=== PATIENT | male | born 1970 | race Caucasian/White ===

== ENCOUNTER 2016-11-19 13:15 | Emergency (ER) | payer OTHER ==
--- NOTE | 2016-11-19 13:54 | ED NURSING NOTES ---
Clinical Report - Nurses [facility] [address] [place] [address] 11/19/2016 13:16 Patient: DANA RAUSCH TRIAGE Triage time 13:19. Acuity: LEVEL 3. Chief Complaint: WASP STING. Alert. No acute distress. HADLEY COMA SCORE: Hadley Coma Scale: 15- eyes open spontaneously (4); best verbal response- oriented x 4 (5); best motor response- obeys commands (6). --13:28 Hannah Selby R.N. 13:19 11/19/16. BP: 119/57. HR: 101. RR: 20. O2 saturation: 94% on room air. Temp: 98.2 F (oral). Pain level now 9/10. --13:28 Hannah Selby R.N. Weight: 108.8 kg stated. Height/Length: 70 inches Per Patient. BMI: 34.4. --13:20 Hannah Selby R.N. Medications Doxepin HCl Oral. Fluoxetine HCl Oral. --13:26 Hannah Selby R.N. MetFORMIN HCl Oral. Percocet Oral. Seroquel Oral. Statins Support Oral. --13:26 Hannah Selby R.N. Methocarbamol Oral. --13:26 Hannah Selby R.N. Gabapentin Oral. --13:26 Hannah Selby R.N. Lantus Subcutaneous. --13:27 Hannah Selby R.N. Allergies Bee stings. Ibuprofen. --13:25 Hannah Selby R.N. PCN. Vicodin. Wool. --13:25 Hannah Selby R.N. Tape. --13:27 Hannah Selby R.N. History Arrived by private vehicle. Historian: patient. Accompanied by family. Primary physician (charles). ( wasp sting 20 min CHILDCARE DIRECTOR to right hand). Location of injuries: right hand. This occurred just prior to arrival. He has had itching. Has had no redness or swelling. No skin rash or trouble swallowing. Treatment CHILDCARE DIRECTOR: (epi pen). SOCIAL HX: Heavy tobacco smoker (cigarette)- less than 1 pack per day. No alcohol use or drug use. FALL RISK ASSESSMENT: Fall risk assessment completed. No fall risk identified. NUTRITIONAL RISK ASSESSMENT: The nutritional risk assessment revealed no deficiencies. FUNCTIONAL ASSESSMENT: Functional assessment: no impairments noted. LEARNING NEEDS ASSESSMENT: The learning needs assessment revealed no barriers. SKIN INTEGRITY ASSESSMENT: Skin integrity risk assessment completed. No skin integrity risk identified. --13:28 Hannah Selby R.N. PROBLEMS: Insect Bite(s). Bee sting . Intervertebral Disc Disease. Arthritis. Spinal Fracture. Neck Pain. Diabetes Mellitus. Abdominal Pain. Immunizations. Heart Murmur. Back Pain. Elevated Cholesterol. --13:28 Hannah Selby R.N. ADDITIONAL SURGERIES: Cholecystectomy. Right hip replacement. Vasectomy. --13:28 Hananh Selby R.N. Interventions ID band on patient. To treatment room. --13:28 Hannah Selby R.N. PHYSICAL ASSESSMENT Ambulatory to room. GENERAL / NEURO / PSYCH: Alert. Oriented X 4. Appears anxious. RESPIRATORY: Respirations not labored. CVS: Pulses within normal limits. Capillary refill less than 2 seconds. GI / : Abdomen soft. EXTREMITIES: Neuro-vascular status intact to the extremity. SKIN: Skin is warm and dry. No skin rash. ( pt itching in triage). --13:29 Hannah Selby R.N. NURSING PROGRESS NOTES 13:29 11/19/16. The plan of care for this patient has been created. Call light placed in reach. Bed placed in lowest position. Brakes of bed on. Patient ready for evaluation- chart flagged. --13:29 Hannah Selby R.N. 13:33 11/19/2016 Solu-Medrol (MethylPREDNISolone Sodium Succ) IM 125 mg given. Allergies verified and confirmed 5 rights. --13:33 Imer Galindo R.N. 13:34 11/19/2016 Benadryl (DiphenhydrAMINE HCl) IM 50 mg given. Allergies verified, confirmed 5 rights and sedative warning given to the patient. --13:34 Imer Galindo R.N. 13:34 11/19/2016 Famotidine PO 40 mg given. Allergies verified and confirmed 5 rights. --13:34 Imer Galindo R.N. 13:34 11/19/16. Pulse oximeter placed on patient. --13:34 Imer Galindo R.N. 13:34 11/19/16. --13:34 Imer Galindo R.N. 13:34 11/19/16. O2 saturation: 94% on room air. --13:34 Imer Galindo R.N. The patient reports no complaints and he is calm and resting quietly. Overall patient status is improved- he states feels better. SKIN: The patient reports itching to be gone now. --13:51 Hannah Selby R.N. 13:52 11/19/16. O2 saturation: 95% on room air. --13:52 Hannah Selby R.N. DISPOSITION / DISCHARGE 14:14 11/19/16. Condition at departure: improved. The goals identified in the patient's plan of care were met. No learning barriers present. Discharge instructions provided and reviewed with the patient and parent. Reviewed warnings. Reviewed medication(s). Treatments reviewed. Patient and parent verbalized understanding. Written instructions provided in Israeli. The patient was discharged by the physician. He was discharged home and accompanied by family. He left the Emergency Department ambulatory and via private vehicle. Family member driving. FALL RISK ASSESSMENT: Fall risk assessment completed. No fall risk identified. --14:14 Imer Galindo R.N. 14:12 11/19/16. BP: 121/76. HR: 99. RR: 18. O2 saturation: 96% on room air. Temp: 98.2 F (oral). Pain level now: 06/20. --14:14 Imer Galindo R.N. 14:14 11/19/16. Departure time: 14:14 Nov 19 2016. --14:14 Imer Galindo R.N. Locked/Released at 11/19/2016 14:19 by Imer Galindo R.N.
--- NOTE | 2016-11-19 13:54 | ED NURSING NOTES ---
Clinical Report - Nurses [facility] [address] [place] [place] [address] 11/19/2016 13:16 Patient: DANA RAUSCH TRIAGE Triage time 13:19. Acuity: LEVEL 3. Chief Complaint: WASP STING. Alert. No acute distress. HADLEY COMA SCORE: Hadley Coma Scale: 15- eyes open spontaneously (4); best verbal response- oriented x 4 (5); best motor response- obeys commands (6). --13:28 Hannah Selby R.N. 13:19 11/19/16. BP: 119/57. HR: 101. RR: 20. O2 saturation: 94% on room air. Temp: 98.2 F (oral). Pain level now 9/10. --13:28 Hannah Selby R.N. Weight: 108.8 kg stated. Height/Length: 70 inches Per Patient. BMI: 34.4. --13:20 Hannah Selby R.N. Medications Doxepin HCl Oral. Fluoxetine HCl Oral. --13:26 Hannah Selby R.N. MetFORMIN HCl Oral. Percocet Oral. Seroquel Oral. Statins Support Oral. --13:26 Hannah Selby R.N. Methocarbamol Oral. --13:26 Hannah Selby R.N. Gabapentin Oral. --13:26 Hannah Selby R.N. Lantus Subcutaneous. --13:27 Hannah Selby R.N. Allergies Bee stings. Ibuprofen. --13:25 Hannah Selby R.N. PCN. Vicodin. Wool. --13:25 Hannah Selby R.N. Tape. --13:27 Hannah Selby R.N. History Arrived by private vehicle. Historian: patient. Accompanied by family. Primary physician (charles). ( wasp sting 20 min STONE LAYER to right hand). Location of injuries: right hand. This occurred just prior to arrival. He has had itching. Has had no redness or swelling. No skin rash or trouble swallowing. Treatment STONE LAYER: (epi pen). SOCIAL HX: Heavy tobacco smoker (cigarette)- less than 1 pack per day. No alcohol use or drug use. FALL RISK ASSESSMENT: Fall risk assessment completed. No fall risk identified. NUTRITIONAL RISK ASSESSMENT: The nutritional risk assessment revealed no deficiencies. FUNCTIONAL ASSESSMENT: Functional assessment: no impairments noted. LEARNING NEEDS ASSESSMENT: The learning needs assessment revealed no barriers. SKIN INTEGRITY ASSESSMENT: Skin integrity risk assessment completed. No skin integrity risk identified. --13:28 Hannah Selby R.N. PROBLEMS: Insect Bite(s). Bee sting . Intervertebral Disc Disease. Arthritis. Spinal Fracture. Neck Pain. Diabetes Mellitus. Abdominal Pain. Immunizations. Heart Murmur. Back Pain. Elevated Cholesterol. --13:28 Hannah Selby R.N. ADDITIONAL SURGERIES: Cholecystectomy. Right hip replacement. Vasectomy. --13:28 Hannah Selby R.N. Interventions ID band on patient. To treatment room. --13:28 Hannah Selby R.N. PHYSICAL ASSESSMENT Ambulatory to room. GENERAL / NEURO / PSYCH: Alert. Oriented X 4. Appears anxious. RESPIRATORY: Respirations not labored. CVS: Pulses within normal limits. Capillary refill less than 2 seconds. GI / : Abdomen soft. EXTREMITIES: Neuro-vascular status intact to the extremity. SKIN: Skin is warm and dry. No skin rash. ( pt itching in triage). --13:29 Hannah Selby R.N. NURSING PROGRESS NOTES 13:29 11/19/16. The plan of care for this patient has been created. Call light placed in reach. Bed placed in lowest position. Brakes of bed on. Patient ready for evaluation- chart flagged. --13:29 Hannah Selby R.N. 13:33 11/19/2016 Solu-Medrol (MethylPREDNISolone Sodium Succ) IM 125 mg given. Allergies verified and confirmed 5 rights. --13:33 Imer Galindo R.N. 13:34 11/19/2016 Benadryl (DiphenhydrAMINE HCl) IM 50 mg given. Allergies verified, confirmed 5 rights and sedative warning given to the patient. --13:34 Imer Galindo R.N. 13:34 11/19/2016 Famotidine PO 40 mg given. Allergies verified and confirmed 5 rights. --13:34 Imer Galindo R.N. 13:34 11/19/16. Pulse oximeter placed on patient. --13:34 Imer Galindo R.N. 13:34 11/19/16. --13:34 Imer Galindo R.N. 13:34 11/19/16. O2 saturation: 94% on room air. --13:34 Imer Galindo R.N. The patient reports no complaints and he is calm and resting quietly. Overall patient status is improved- he states feels better. SKIN: The patient reports itching to be gone now. --13:51 Hannah Selby R.N. 13:52 11/19/16. O2 saturation: 95% on room air. --13:52 Hannah Selby R.N. DISPOSITION / DISCHARGE 14:14 11/19/16. Condition at departure: improved. The goals identified in the patient's plan of care were met. No learning barriers present. Discharge instructions provided and reviewed with the patient and parent. Reviewed warnings. Reviewed medication(s). Treatments reviewed. Patient and parent verbalized understanding. Written instructions provided in Latvian. The patient was discharged by the physician. He was discharged home and accompanied by family. He left the Emergency Department ambulatory and via private vehicle. Family member driving. FALL RISK ASSESSMENT: Fall risk assessment completed. No fall risk identified. --14:14 Imer Galindo R.N. 14:12 11/19/16. BP: 121/76. HR: 99. RR: 18. O2 saturation: 96% on room air. Temp: 98.2 F (oral). Pain level now: 06/20. --14:14 Imer Galindo R.N. 14:14 11/19/16. Departure time: 14:14 Nov 19 2016. --14:14 Imer Galindo R.N. Locked/Released at 11/19/2016 14:19 by Imer Galindo R.N.
--- NOTE | 2016-11-19 13:54 | ED ORDER SUMMARY ---
..... Patient: DANA RAUSCH OrderSheet [facility] VisitID: [id number] [address] [place] [address] 46y, M Registration Date/Time: 11/19/2016 ORDER SHEET Weight: 108.8 kg (stated) Allergies: Bee stings, Ibuprofen, PCN, Vicodin, Wool, Tape GENERAL ORDERS: MEDICATION ORDERS: Solu-MEDROL IM 125 mg (NOW) (13:25 11/19/2016 fadumo ALEMAN) (Ack 13:26 JBoardley R.N.) (13:33 JBoardley R.N.) Benadryl IM 50 mg (NOW) (13:25 [facility]/2016 [facility] (Ack 13:26 JBoardley R.N.) (13:34 JBoardley R.N.) Famotidine PO 40 mg (NOW) (13:26 [facility]/19/2016 [facility] (Ack 13:26 JBoardley R.N.) (13:34 JBoardley R.N.) IV FLUIDS: ORDER SHEET NOTES: [Electronically signed by Imer Galindo R.N. (14:19 11/19/2016)] [Electronically signed by Yasmani Chandra DO (14:27 11/19/2016)] [Electronically locked/signed by Imer Galindo R.N. (14:19 11/19/2016)]
--- NOTE | 2016-11-19 13:54 | ED CLINICAL REPORT ---
Clinical Report - Physicians/Mid Levels [facility] [address] [place] [address] 11/19/2016 13:16 Patient: DANA RAUSCH Time Seen: 13:20. Arrived- By private vehicle. Historian- patient. HISTORY OF PRESENT ILLNESS Location of injuries- right 2nd finger. Chief Complaint: BEE STING. The injury occurred just prior to arrival. Occurred on a street. The patient has had itching. He has had a itchy skin rash consisting of "redness" located on the back, chest and abdomen. He has not had swelling, drainage or trouble swallowing. No difficulty breathing. 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 REVIEW OF SYSTEMS No swelling, numbness, headache, difficulty breathing or weakness. No tingling, chest pain, nausea, fever or joint pain. No abdominal pain, vomiting or chills. PAST HISTORY Type II diabetes mellitus treated with oral med and insulin. Prior allergic reaction, secondary to insect bite. Carries EpiPen. PCP: Dr Harden. Heart murmur. Asthma. Chronic obstructive pulmonary disease. Hyperlipidemia. Back pain. Anxiety problems. Depression. Surgeries: Cholecystectomy. Right hip surgery. Vasectomy. SOCIAL HISTORY Smoker- current status unknown. Occasional alcohol use. ADDITIONAL NOTES The nursing notes have been reviewed. PHYSICAL EXAM Vital Signs: 11/19/2016 13:19 BP: 119/57. HR: 101. RR: 20. O2 saturation: 94%. Temp: 98.2 F. Appearance: Alert. Oriented X3. Anxious. Patient in mild distress. Head: Head normal on inspection and non-tender. Eyes: Eyes normal inspection. ENT: Ears normal on inspection. Nose normal on inspection. Mouth normal on inspection. Uvula not deviated. Airway not obstructed. No pharyngeal erythema or swelling. Neck: Normal inspection. Neck non-tender. CVS: Tachycardia. Heart sounds normal. Respiratory: Chest normal on inspection. Chest nontender. Abdomen: Soft and nontender. No rebound tenderness or guarding. Back: No tenderness. Skin: Skin warm and dry. Mild, erythematous skin rash located on the right arm, left arm, chest and abdomen. Extremities: Right index finger: mild erythema and tenderness of the distal phalanx; (no stinger seen). No swelling, puncture wound, foreign body or deformity. Pelvis stable. Extremities atraumatic. Neuro: Ellerbe Coma Scale: 15- eyes open spontaneously (4); best verbal response- oriented x 3 (5); best motor response- obeys commands (6). Oriented X 3. No motor deficit. No sensory deficit. PROGRESS AND PROCEDURES Course of Care: Benadryl 50mg IM given. Solu-Medrol 125mg IM given. Famotidine 40 mg PO given. 13:54 11/19/16. Physical exam findings are improved. Symptoms much better. 11/19/2016 14:12 BP: 121/76. HR: 99. RR: 18. O2 saturation: 96%. Temp: 98.2 F. Pain level now: 06/20. Patient/family counseled. Old ED records reviewed. Disposition: Discharged. Condition: stable and improved. CLINICAL IMPRESSION Single bee sting to the right index finger. Generalized allergic reaction. INSTRUCTIONS Do not work today. Warnings: GENERAL WARNINGS: Return or contact your physician immediately if your condition worsens or changes unexpectedly, if not improving as expected, or if other problems arise. Specifically return if breathing difficulty. Your Current Medications: CONTINUE TAKING THE FOLLOWING MEDICATIONS: Doxepin HCl Oral. Fluoxetine HCl Oral. Gabapentin Oral. Lantus Subcutaneous. MetFORMIN HCl Oral. Methocarbamol Oral. Percocet Oral. Seroquel Oral. Statins Support Oral. Prescription Medications: Zantac 150 mg: take 1 orally every 12 hours for 3 days. Dispense fifteen (15). No refills. Substitution is permissible. Prednisone 20 mg: take 3 orally every day for 3 days. Dispense sufficient quantity. No refills. EpiPen Auto-Injector 0.3mg / unit: inject 1 unit dose as directed. Dispense one (1) one-esdras. No refills. Substitution is permissible. OTC Medications: Benadryl Allergy 25 mg (available over the counter): take 1-2 orally every 8 hours as needed for itching or allergies. Dispense thirty (30). No refill. Substitution is permissible. Follow-up: Follow up with your doctor Dereck in about two days. (Electronically signed by Yasmani Chandra DO 11/19/2016 14:27)
--- NOTE | 2016-11-19 13:54 | ED CLINICAL REPORT ---
Clinical Report - Physicians/Mid Levels [facility] [address] [place] [address] 11/19/2016 13:16 Patient: DANA RAUSCH Time Seen: 13:20. Arrived- By private vehicle. Historian- patient. HISTORY OF PRESENT ILLNESS Location of injuries- right 2nd finger. Chief Complaint: BEE STING. The injury occurred just prior to arrival. Occurred on a street. The patient has had itching. He has had a itchy skin rash consisting of "redness" located on the back, chest and abdomen. He has not had swelling, drainage or trouble swallowing. No difficulty breathing. 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 REVIEW OF SYSTEMS No swelling, numbness, headache, difficulty breathing or weakness. No tingling, chest pain, nausea, fever or joint pain. No abdominal pain, vomiting or chills. PAST HISTORY Type II diabetes mellitus treated with oral med and insulin. Prior allergic reaction, secondary to insect bite. Carries EpiPen. PCP: Dr Harden. Heart murmur. Asthma. Chronic obstructive pulmonary disease. Hyperlipidemia. Back pain. Anxiety problems. Depression. Surgeries: Cholecystectomy. Right hip surgery. Vasectomy. SOCIAL HISTORY Smoker- current status unknown. Occasional alcohol use. ADDITIONAL NOTES The nursing notes have been reviewed. PHYSICAL EXAM Vital Signs: 11/19/2016 13:19 BP: 119/57. HR: 101. RR: 20. O2 saturation: 94%. Temp: 98.2 F. Appearance: Alert. Oriented X3. Anxious. Patient in mild distress. Head: Head normal on inspection and non-tender. Eyes: Eyes normal inspection. ENT: Ears normal on inspection. Nose normal on inspection. Mouth normal on inspection. Uvula not deviated. Airway not obstructed. No pharyngeal erythema or swelling. Neck: Normal inspection. Neck non-tender. CVS: Tachycardia. Heart sounds normal. Respiratory: Chest normal on inspection. Chest nontender. Abdomen: Soft and nontender. No rebound tenderness or guarding. Back: No tenderness. Skin: Skin warm and dry. Mild, erythematous skin rash located on the right arm, left arm, chest and abdomen. Extremities: Right index finger: mild erythema and tenderness of the distal phalanx; (no stinger seen). No swelling, puncture wound, foreign body or deformity. Pelvis stable. Extremities atraumatic. Neuro: [employer] Coma Scale: 15- eyes open spontaneously (4); best verbal response- oriented x 3 (5); best motor response- obeys commands (6). Oriented X 3. No motor deficit. No sensory deficit. PROGRESS AND PROCEDURES Course of Care: Benadryl 50mg IM given. Solu-Medrol 125mg IM given. Famotidine 40 mg PO given. 13:54 11/19/16. Physical exam findings are improved. Symptoms much better. 11/19/2016 14:12 BP: 121/76. HR: 99. RR: 18. O2 saturation: 96%. Temp: 98.2 F. Pain level now: 06/20. Patient/family counseled. Old ED records reviewed. Disposition: Discharged. Condition: stable and improved. CLINICAL IMPRESSION Single bee sting to the right index finger. Generalized allergic reaction. INSTRUCTIONS Do not work today. Warnings: GENERAL WARNINGS: Return or contact your physician immediately if your condition worsens or changes unexpectedly, if not improving as expected, or if other problems arise. Specifically return if breathing difficulty. Your Current Medications: CONTINUE TAKING THE FOLLOWING MEDICATIONS: Doxepin HCl Oral. Fluoxetine HCl Oral. Gabapentin Oral. Lantus Subcutaneous. MetFORMIN HCl Oral. Methocarbamol Oral. Percocet Oral. Seroquel Oral. Statins Support Oral. Prescription Medications: Zantac 150 mg: take 1 orally every 12 hours for 3 days. Dispense fifteen (15). No refills. Substitution is permissible. Prednisone 20 mg: take 3 orally every day for 3 days. Dispense sufficient quantity. No refills. EpiPen Auto-Injector 0.3mg / unit: inject 1 unit dose as directed. Dispense one (1) one-esdras. No refills. Substitution is permissible. OTC Medications: Benadryl Allergy 25 mg (available over the counter): take 1-2 orally every 8 hours as needed for itching or allergies. Dispense thirty (30). No refill. Substitution is permissible. Follow-up: Follow up with your doctor Dereck in about two days. (Electronically signed by Yasmani Chandra DO 11/19/2016 14:27)
--- NOTE | 2016-11-19 13:54 | ED ORDER SUMMARY ---
..... Patient: DANA RAUSCH OrderSheet [facility] VisitID: [id number] [address] [place] [address] 46y, M Registration Date/Time: 11/19/2016 ORDER SHEET Weight: 108.8 kg (stated) Allergies: Bee stings, Ibuprofen, PCN, Vicodin, Wool, Tape GENERAL ORDERS: MEDICATION ORDERS: Solu-MEDROL IM 125 mg (NOW) (13:25 11/19/2016 fadumo ALEMAN) (Ack 13:26 JBoardley R.N.) (13:33 JBoardley R.N.) Benadryl IM 50 mg (NOW) (13:25 11/19/2016 [facility] (Ack 13:26 JBoardley R.N.) (13:34 JBoardley R.N.) Famotidine PO 40 mg (NOW) (13:26 11/19/2016 [facility] (Ack 13:26 JBoardley R.N.) (13:34 JBoardley R.N.) IV FLUIDS: ORDER SHEET NOTES: [Electronically signed by Imer Galindo R.N. (14:19 11/19/2016)] [Electronically signed by Yasmani Chandra DO (14:27 11/19/2016)] [Electronically locked/signed by Imer Galindo R.N. (14:19 11/19/2016)]
--- NOTE | 2016-11-19 14:27 | ED DISCHARGE INSTRUCTIONS ---
Patient: ADNA RAUSCH General Instructions [facility] VisitID: [id number] [address] [place] [address] 46y, M Registration Date/Time: 11/19/2016 Single bee sting to the right index finger. Generalized allergic reaction. INSTRUCTIONS Do not work today. Warnings: GENERAL WARNINGS: Return or contact your physician immediately if your condition worsens or changes unexpectedly, if not improving as expected, or if other problems arise. Specifically return if breathing difficulty. Your Current Medications: CONTINUE TAKING THE FOLLOWING MEDICATIONS: Doxepin HCl Oral. Fluoxetine HCl Oral. Gabapentin Oral. Lantus Subcutaneous. MetFORMIN HCl Oral. Methocarbamol Oral. Percocet Oral. Seroquel Oral. Statins Support Oral. Prescription Medications: Zantac 150 mg: take 1 orally every 12 hours for 3 days. Dispense fifteen (15). No refills. Substitution is permissible. Prednisone 20 mg: take 3 orally every day for 3 days. Dispense sufficient quantity. No refills. EpiPen Auto-Injector 0.3mg / unit: inject 1 unit dose as directed. Dispense one (1) one-esdras. No refills. Substitution is permissible. OTC Medications: Benadryl Allergy 25 mg (available over the counter): take 1-2 orally every 8 hours as needed for itching or allergies. Dispense thirty (30). No refill. Substitution is permissible. Follow-up: Follow up with your doctor Dereck in about two days. ADDITIONAL INFORMATION Insect Sting Allergy,Generalized You are having an allergic reaction to an insect sting. This may occur after a sting by a wasp, honeybee, yellow jacket or other insect. This may cause an itchy rash and swelling in the face or other parts of the body. A more severe reaction may cause you to feel dizzy or faint or have trouble breathing or swallowing. Insect stings may also become infected 1-3 days later, so watch for the warning signs below. Home Care: Avoid tight clothing and things that heat up your skin (such as hot showers or baths, or direct sunlight). Heat makes the itching worse. An ice pack (ice cubes in a plastic bag, wrapped in a towel) will relieve local areas of intense itching and redness. Lanacaine cream or Solarcaine spray (or other product containing "benzocaine") will reduce the itching. Oral Benadryl (diphenhydramine) is an antihistamine available at drug and grocery stores. Unless a prescription antihistamine was given, Benadryl may be used to reduce itching if large areas of the skin are involved. Use lower doses during the daytime and higher doses at bedtime since the drug may make you sleepy. [NOTE: Do not use Benadryl if you have glaucoma or if you are a man with trouble urinating due to an enlarged prostate.] Claritin (loratadine) is an antihistamine that causes less drowsiness and is a good alternative for daytime use. You may use acetaminophen (Tylenol) or ibuprofen (Motrin, Advil) to control pain, unless another pain medicine was prescribed. [NOTE: If you have chronic liver or kidney disease or ever had a stomach ulcer or GI bleeding, talk with your doctor before using these medicines.] Preventing Future Reactions: Future reactions could be worse than this one, so try to avoid situations where you might be stung again. Be aware that honeybees nest in trees. Wasps and yellow jackets nest in the ground, trees or roof eaves. If you are stung by a honeybee a stinger will remain in your skin. Wasps, yellow jackets, hornets do not leave a stinger behind. In either case, move away from the nest area immediately to avoid more stings. (The stinger of a honeybee releases a substance that will attract other bees to you.) After you are safely away from the nest, remove the stinger as quickly as possible, by scraping it out with the edge of a dull knife or plastic card (credit card). Do not use a tweezer or your fingers, since that may squeeze more toxin from the stinger. After any sting, you may apply ice and take Benadryl or other antihistamine. If you develop any of the warning signs below, seek help immediately. If you are at high risk for another sting due to where you work or play, or if your reaction included dizziness, fainting or trouble breathing or swallowing, an Insect Allergy Kit or Epi-Pen may be prescribed. If not, ask your doctor for one and carry it with you when you are in a risk area. Learn how to use the device. If you begin to feel the symptoms of another reaction in the future, use the Epi-Pen to inject yourself, and then call 911. Don't wait until symptoms become severe. Follow Up with your doctor or this facility in the next two days if your symptoms do not continue to improve. Get Prompt Medical Attention if any of the following occur: Spreading areas of itching, redness or swelling New or worse swelling in the face, eyelids, lips, mouth, throat or tongue Trouble swallowing or breathing Dizziness, weakness or fainting Headache, fever, chills, muscle or joint aching, vomiting, Increased pain or swelling Fever of 100.4F (38C) or higher, or as directed by your healthcare provider Colored fluid draining from the wound Ranitidine Hydrochloride Oral tablet What is this medicine? RANITIDINE (ra ROCAEL moncada) is a type of antihistamine that blocks the release of stomach acid. It is used to treat stomach or intestinal ulcers. It can relieve ulcer pain and discomfort, and the heartburn from acid reflux. How should I use this medicine? Take this medicine by mouth with a glass of water. Follow the directions on the prescription label. If you only take this medicine once a day, take it at bedtime. Take your medicine at regular intervals. Do not take your medicine more often than directed. Do not stop taking except on your doctor's advice. Talk to your edge burnisher regarding the use of this medicine in children. Special care may be needed. What side effects may I notice from receiving this medicine? Side effects that you should report to your doctor or health assurance services manager health care as soon as possible: agitation, nervousness, depression, hallucinations allergic reactions like skin rash, itching or hives, swelling of the face, lips, or tongue breast enlargement in both males and females breathing problems redness, blistering, peeling or loosening of the skin, including inside the mouth unusual bleeding or bruising unusually weak or tired vomiting yellowing of the skin or eyes Side effects that usually do not require medical attention (report to your doctor or health assurance services manager health care if they continue or are bothersome): constipation or diarrhea dizziness headache nausea What may interact with this medicine? atazanavir delavirdine gefitinib glipizide ketoconazole midazolam procainamide propantheline triazolam warfarin What if I miss a dose? If you miss a dose, take it as soon as you can. If it is almost time for your next dose, take only that dose. Do not take double or extra doses. Where should I keep my medicine? Keep out of the reach of children. Store at room temperature between 15 and 30 degrees C (59 and 86 degrees F). Protect from light and moisture. Keep container tightly closed. Throw away any unused medicine after the expiration date. What should I tell my health care provider before I take this medicine? They need to know if you have any of these conditions: kidney disease liver disease porphyria an unusual or allergic reaction to ranitidine, other medicines, foods, dyes, or preservatives or trying to get breast-feeding What should I watch for while using this medicine? Tell your doctor or health assurance services manager health care if your condition does not start to get better or gets worse. You may need to take this medicine for several days as prescribed before your symptoms get better. Finish the full course of tablets prescribed, even if you feel better. Do not smoke cigarettes or drink alcohol. These increase irritation in your stomach and can lengthen the time it will take for ulcers to heal. Cigarettes and alcohol can also make acid reflux or heartburn worse. If you get black, tarry stools or vomit up what looks like coffee grounds, call your doctor or health assurance services manager health care at once. You may have a bleeding ulcer. Prednisone Oral tablet What is this medicine? PREDNISONE (PRED ni sone) is a corticosteroid. It is commonly used to treat inflammation of the skin, joints, lungs, and other organs. Common conditions treated include asthma, allergies, and arthritis. It is also used for other conditions, such as blood disorders and diseases of the adrenal glands. How should I use this medicine? Take this medicine by mouth with a glass of water. Follow the directions on the prescription label. Take this medicine with food. If you are taking this medicine once a day, take it in the morning. Do not take more medicine than you are told to take. Do not suddenly stop taking your medicine because you may develop a severe reaction. Your doctor will tell you how much medicine to take. If your doctor wants you to stop the medicine, the dose may be slowly lowered over time to avoid any side effects. Talk to your edge burnisher regarding the use of this medicine in children. Special care may be needed. What side effects may I notice from receiving this medicine? Side effects that you should report to your doctor or health assurance services manager health care as soon as possible: allergic reactions like skin rash, itching or hives, swelling of the face, lips, or tongue changes in emotions or moods changes in vision depressed mood eye pain fever or chills, cough, sore throat, pain or difficulty passing urine increased thirst swelling of ankles, feet Side effects that usually do not require medical attention (report to your doctor or health assurance services manager health care if they continue or are bothersome): confusion, excitement, restlessness headache nausea, vomiting skin problems, acne, thin and shiny skin trouble sleeping weight gain What may interact with this medicine? Do not take this medicine with any of the following medications: metyrapone mifepristone This medicine may also interact with the following medications: aminoglutethimide amphotericin B aspirin and aspirin-like medicines barbiturates certain medicines for diabetes, like glipizide or glyburide cholestyramine cholinesterase inhibitors cyclosporine digoxin diuretics ephedrine female hormones, like estrogens and control pills isoniazid ketoconazole NSAIDS, medicines for pain and inflammation, like ibuprofen or naproxen phenytoin rifampin toxoids vaccines warfarin What if I miss a dose? If you miss a dose, take it as soon as you can. If it is almost time for your next dose, talk to your doctor or health assurance services manager health care. You may need to miss a dose or take an extra dose. Do not take double or extra doses without advice. Where should I keep my medicine? Keep out of the reach of children. Store at room temperature between 15 and 30 degrees C (59 and 86 degrees F). Protect from light. Keep container tightly closed. Throw away any unused medicine after the expiration date. What should I tell my health care provider before I take this medicine? They need to know if you have any of these conditions: Jorge's syndrome diabetes glaucoma heart disease high blood pressure infection (especially a virus infection such as chickenpox, cold sores, or herpes) kidney disease liver disease mental illness myasthenia gravis osteoporosis seizures stomach or intestine problems thyroid disease an unusual or allergic reaction to lactose, prednisone, other medicines, foods, dyes, or preservatives or trying to get breast-feeding What should I watch for while using this medicine? Visit your doctor or health assurance services manager health care for regular checks on your progress. If you are taking this medicine over a prolonged period, carry an identification card with your name and address, the type and dose of your medicine, and your doctor's name and address. This medicine may increase your risk of getting an infection. Tell your doctor or health assurance services manager health care if you are around anyone with measles or chickenpox, or if you develop sores or blisters that do not heal properly. If you are going to have surgery, tell your doctor or health assurance services manager health care that you have taken this medicine within the last twelve months. Ask your doctor or health assurance services manager health care about your diet. You may need to lower the amount of salt you eat. This medicine may affect blood sugar levels. If you have diabetes, check with your doctor or health assurance services manager health care before you change your diet or the dose of your diabetic medicine. Diphenhydramine Tannate Chewable tablet What is this medicine? DIPHENHYDRAMINE (dye fen EDWARD ellis) is an antihistamine. It is used to treat the symptoms of an allergic reaction. How should I use this medicine? Take this medicine by mouth. Chew it completely before swallowing. Follow the directions on the prescription label. Take your doses at regular intervals. Do not take your medicine more often than directed. Talk to your edge burnisher regarding the use of this medicine in children. While this drug may be prescribed for children as young as 6 years old for selected conditions, precautions do apply. Patients over 65 years old may have a stronger reaction and need a smaller dose. What side effects may I notice from receiving this medicine? Side effects that you should report to your doctor or health assurance services manager health care as soon as possible: allergic reactions like skin rash, itching or hives, swelling of the face, lips, or tongue changes in vision confused, agitated, nervous irregular or fast heartbeat tremor trouble passing urine unusual bleeding or bruising unusually weak or tired Side effects that usually do not require medical attention (report to your doctor or health assurance services manager health care if they continue or are bothersome): constipation, diarrhea drowsy headache loss of appetite stomach upset, vomiting thick mucous What may interact with this medicine? Do not take this medicine with any of the following medications: MAOIs like Carbex, Eldepryl, Marplan, Nardil, and Parnate This medicine may also interact with the following medications: alcohol barbiturates, like phenobarbital medicines for bladder spasm like oxybutynin, tolterodine medicines for blood pressure medicines for depression, anxiety, or psychotic disturbances medicines for movement abnormalities or Parkinson's disease medicines for sleep other medicines for cold, cough or allergy some medicines for the stomach like chlordiazepoxide, dicyclomine What if I miss a dose? If you miss a dose, take it as soon as you can. If it is almost time for your next dose, take only that dose. Do not take double or extra doses. Where should I keep my medicine? Keep out of the reach of children. Store at room temperature between 15 and 30 degrees C (59 and 86 degrees F). Keep container closed tightly. Throw away any unused medicine after the expiration date. What should I tell my health care provider before I take this medicine? They need to know if you have any of these conditions: glaucoma high blood pressure heart disease liver disease lung or breathing disease, like asthma pain or difficulty passing urine phenylketonuria prostate trouble ulcers or other stomach problems an unusual or allergic reaction to diphenhydramine, sulfites, other medicines foods, dyes, or preservatives or trying to get breast-feeding What should I watch for while using this medicine? Visit your doctor or health assurance services manager health care for regular check ups. Tell your doctor or healthcare professional if your symptoms do not start to get better or if they get worse. Your mouth may get dry. Chewing sugarless gum or sucking hard candy, and drinking plenty of water may help. Contact your doctor if the problem does not go away or is severe. This medicine may cause dry eyes and blurred vision. If you wear contact lenses you may feel some discomfort. Lubricating drops may help. See your eye doctor if the problem does not go away or is severe. You may get drowsy or dizzy. Do not drive, use machinery, or do anything that needs mental alertness until you know how this medicine affects you. Do not stand or sit up quickly, especially if you are an older patient. This reduces the risk of dizzy or fainting spells. Alcohol may interfere with the effect of this medicine. Avoid alcoholic drinks. You have been given the following additional information: Allergic Reaction, Insect (General) Ranitidine Hydrochloride Oral tablet Prednisone Oral tablet Diphenhydramine Tannate Chewable tablet Do not work today. (Electronically signed by Yasmani Chandra DO 11/19/2016 14:27)
--- NOTE | 2016-11-19 14:27 | ED DISCHARGE INSTRUCTIONS ---
Patient: DANA RAUSCH General Instructions [facility] VisitID: [id number] [address] [place] [address] 46y, M Registration Date/Time: 11/19/2016 Single bee sting to the right index finger. Generalized allergic reaction. INSTRUCTIONS Do not work today. Warnings: GENERAL WARNINGS: Return or contact your physician immediately if your condition worsens or changes unexpectedly, if not improving as expected, or if other problems arise. Specifically return if breathing difficulty. Your Current Medications: CONTINUE TAKING THE FOLLOWING MEDICATIONS: Doxepin HCl Oral. Fluoxetine HCl Oral. Gabapentin Oral. Lantus Subcutaneous. MetFORMIN HCl Oral. Methocarbamol Oral. Percocet Oral. Seroquel Oral. Statins Support Oral. Prescription Medications: Zantac 150 mg: take 1 orally every 12 hours for 3 days. Dispense fifteen (15). No refills. Substitution is permissible. Prednisone 20 mg: take 3 orally every day for 3 days. Dispense sufficient quantity. No refills. EpiPen Auto-Injector 0.3mg / unit: inject 1 unit dose as directed. Dispense one (1) one-esdras. No refills. Substitution is permissible. OTC Medications: Benadryl Allergy 25 mg (available over the counter): take 1-2 orally every 8 hours as needed for itching or allergies. Dispense thirty (30). No refill. Substitution is permissible. Follow-up: Follow up with your doctor Dereck in about two days. ADDITIONAL INFORMATION Insect Sting Allergy,Generalized You are having an allergic reaction to an insect sting. This may occur after a sting by a wasp, honeybee, yellow jacket or other insect. This may cause an itchy rash and swelling in the face or other parts of the body. A more severe reaction may cause you to feel dizzy or faint or have trouble breathing or swallowing. Insect stings may also become infected 1-3 days later, so watch for the warning signs below. Home Care: Avoid tight clothing and things that heat up your skin (such as hot showers or baths, or direct sunlight). Heat makes the itching worse. An ice pack (ice cubes in a plastic bag, wrapped in a towel) will relieve local areas of intense itching and redness. Lanacaine cream or Solarcaine spray (or other product containing "benzocaine") will reduce the itching. Oral Benadryl (diphenhydramine) is an antihistamine available at drug and grocery stores. Unless a prescription antihistamine was given, Benadryl may be used to reduce itching if large areas of the skin are involved. Use lower doses during the daytime and higher doses at bedtime since the drug may make you sleepy. [NOTE: Do not use Benadryl if you have glaucoma or if you are a man with trouble urinating due to an enlarged prostate.] Claritin (loratadine) is an antihistamine that causes less drowsiness and is a good alternative for daytime use. You may use acetaminophen (Tylenol) or ibuprofen (Motrin, Advil) to control pain, unless another pain medicine was prescribed. [NOTE: If you have chronic liver or kidney disease or ever had a stomach ulcer or GI bleeding, talk with your doctor before using these medicines.] Preventing Future Reactions: Future reactions could be worse than this one, so try to avoid situations where you might be stung again. Be aware that honeybees nest in trees. Wasps and yellow jackets nest in the ground, trees or roof eaves. If you are stung by a honeybee a stinger will remain in your skin. Wasps, yellow jackets, hornets do not leave a stinger behind. In either case, move away from the nest area immediately to avoid more stings. (The stinger of a honeybee releases a substance that will attract other bees to you.) After you are safely away from the nest, remove the stinger as quickly as possible, by scraping it out with the edge of a dull knife or plastic card (credit card). Do not use a tweezer or your fingers, since that may squeeze more toxin from the stinger. After any sting, you may apply ice and take Benadryl or other antihistamine. If you develop any of the warning signs below, seek help immediately. If you are at high risk for another sting due to where you work or play, or if your reaction included dizziness, fainting or trouble breathing or swallowing, an Insect Allergy Kit or Epi-Pen may be prescribed. If not, ask your doctor for one and carry it with you when you are in a risk area. Learn how to use the device. If you begin to feel the symptoms of another reaction in the future, use the Epi-Pen to inject yourself, and then call 911. Don't wait until symptoms become severe. Follow Up with your doctor or this facility in the next two days if your symptoms do not continue to improve. Get Prompt Medical Attention if any of the following occur: Spreading areas of itching, redness or swelling New or worse swelling in the face, eyelids, lips, mouth, throat or tongue Trouble swallowing or breathing Dizziness, weakness or fainting Headache, fever, chills, muscle or joint aching, vomiting, Increased pain or swelling Fever of 100.4F (38C) or higher, or as directed by your healthcare provider Colored fluid draining from the wound Ranitidine Hydrochloride Oral tablet What is this medicine? RANITIDINE (ra ROCAEL moncada) is a type of antihistamine that blocks the release of stomach acid. It is used to treat stomach or intestinal ulcers. It can relieve ulcer pain and discomfort, and the heartburn from acid reflux. How should I use this medicine? Take this medicine by mouth with a glass of water. Follow the directions on the prescription label. If you only take this medicine once a day, take it at bedtime. Take your medicine at regular intervals. Do not take your medicine more often than directed. Do not stop taking except on your doctor's advice. Talk to your office helper clerical regarding the use of this medicine in children. Special care may be needed. What side effects may I notice from receiving this medicine? Side effects that you should report to your doctor or health wound care technician as soon as possible: agitation, nervousness, depression, hallucinations allergic reactions like skin rash, itching or hives, swelling of the face, lips, or tongue breast enlargement in both males and females breathing problems redness, blistering, peeling or loosening of the skin, including inside the mouth unusual bleeding or bruising unusually weak or tired vomiting yellowing of the skin or eyes Side effects that usually do not require medical attention (report to your doctor or health wound care technician if they continue or are bothersome): constipation or diarrhea dizziness headache nausea What may interact with this medicine? atazanavir delavirdine gefitinib glipizide ketoconazole midazolam procainamide propantheline triazolam warfarin What if I miss a dose? If you miss a dose, take it as soon as you can. If it is almost time for your next dose, take only that dose. Do not take double or extra doses. Where should I keep my medicine? Keep out of the reach of children. Store at room temperature between 15 and 30 degrees C (59 and 86 degrees F). Protect from light and moisture. Keep container tightly closed. Throw away any unused medicine after the expiration date. What should I tell my health care provider before I take this medicine? They need to know if you have any of these conditions: kidney disease liver disease porphyria an unusual or allergic reaction to ranitidine, other medicines, foods, dyes, or preservatives or trying to get breast-feeding What should I watch for while using this medicine? Tell your doctor or health wound care technician if your condition does not start to get better or gets worse. You may need to take this medicine for several days as prescribed before your symptoms get better. Finish the full course of tablets prescribed, even if you feel better. Do not smoke cigarettes or drink alcohol. These increase irritation in your stomach and can lengthen the time it will take for ulcers to heal. Cigarettes and alcohol can also make acid reflux or heartburn worse. If you get black, tarry stools or vomit up what looks like coffee grounds, call your doctor or health wound care technician at once. You may have a bleeding ulcer. Prednisone Oral tablet What is this medicine? PREDNISONE (PRED ni sone) is a corticosteroid. It is commonly used to treat inflammation of the skin, joints, lungs, and other organs. Common conditions treated include asthma, allergies, and arthritis. It is also used for other conditions, such as blood disorders and diseases of the adrenal glands. How should I use this medicine? Take this medicine by mouth with a glass of water. Follow the directions on the prescription label. Take this medicine with food. If you are taking this medicine once a day, take it in the morning. Do not take more medicine than you are told to take. Do not suddenly stop taking your medicine because you may develop a severe reaction. Your doctor will tell you how much medicine to take. If your doctor wants you to stop the medicine, the dose may be slowly lowered over time to avoid any side effects. Talk to your office helper clerical regarding the use of this medicine in children. Special care may be needed. What side effects may I notice from receiving this medicine? Side effects that you should report to your doctor or health wound care technician as soon as possible: allergic reactions like skin rash, itching or hives, swelling of the face, lips, or tongue changes in emotions or moods changes in vision depressed mood eye pain fever or chills, cough, sore throat, pain or difficulty passing urine increased thirst swelling of ankles, feet Side effects that usually do not require medical attention (report to your doctor or health wound care technician if they continue or are bothersome): confusion, excitement, restlessness headache nausea, vomiting skin problems, acne, thin and shiny skin trouble sleeping weight gain What may interact with this medicine? Do not take this medicine with any of the following medications: metyrapone mifepristone This medicine may also interact with the following medications: aminoglutethimide amphotericin B aspirin and aspirin-like medicines barbiturates certain medicines for diabetes, like glipizide or glyburide cholestyramine cholinesterase inhibitors cyclosporine digoxin diuretics ephedrine female hormones, like estrogens and control pills isoniazid ketoconazole NSAIDS, medicines for pain and inflammation, like ibuprofen or naproxen phenytoin rifampin toxoids vaccines warfarin What if I miss a dose? If you miss a dose, take it as soon as you can. If it is almost time for your next dose, talk to your doctor or health wound care technician. You may need to miss a dose or take an extra dose. Do not take double or extra doses without advice. Where should I keep my medicine? Keep out of the reach of children. Store at room temperature between 15 and 30 degrees C (59 and 86 degrees F). Protect from light. Keep container tightly closed. Throw away any unused medicine after the expiration date. What should I tell my health care provider before I take this medicine? They need to know if you have any of these conditions: Jorge's syndrome diabetes glaucoma heart disease high blood pressure infection (especially a virus infection such as chickenpox, cold sores, or herpes) kidney disease liver disease mental illness myasthenia gravis osteoporosis seizures stomach or intestine problems thyroid disease an unusual or allergic reaction to lactose, prednisone, other medicines, foods, dyes, or preservatives or trying to get breast-feeding What should I watch for while using this medicine? Visit your doctor or health wound care technician for regular checks on your progress. If you are taking this medicine over a prolonged period, carry an identification card with your name and address, the type and dose of your medicine, and your doctor's name and address. This medicine may increase your risk of getting an infection. Tell your doctor or health wound care technician if you are around anyone with measles or chickenpox, or if you develop sores or blisters that do not heal properly. If you are going to have surgery, tell your doctor or health wound care technician that you have taken this medicine within the last twelve months. Ask your doctor or health wound care technician about your diet. You may need to lower the amount of salt you eat. This medicine may affect blood sugar levels. If you have diabetes, check with your doctor or health wound care technician before you change your diet or the dose of your diabetic medicine. Diphenhydramine Tannate Chewable tablet What is this medicine? DIPHENHYDRAMINE (dye fen EDWARD ellis) is an antihistamine. It is used to treat the symptoms of an allergic reaction. How should I use this medicine? Take this medicine by mouth. Chew it completely before swallowing. Follow the directions on the prescription label. Take your doses at regular intervals. Do not take your medicine more often than directed. Talk to your office helper clerical regarding the use of this medicine in children. While this drug may be prescribed for children as young as 6 years old for selected conditions, precautions do apply. Patients over 65 years old may have a stronger reaction and need a smaller dose. What side effects may I notice from receiving this medicine? Side effects that you should report to your doctor or health wound care technician as soon as possible: allergic reactions like skin rash, itching or hives, swelling of the face, lips, or tongue changes in vision confused, agitated, nervous irregular or fast heartbeat tremor trouble passing urine unusual bleeding or bruising unusually weak or tired Side effects that usually do not require medical attention (report to your doctor or health wound care technician if they continue or are bothersome): constipation, diarrhea drowsy headache loss of appetite stomach upset, vomiting thick mucous What may interact with this medicine? Do not take this medicine with any of the following medications: MAOIs like Carbex, Eldepryl, Marplan, Nardil, and Parnate This medicine may also interact with the following medications: alcohol barbiturates, like phenobarbital medicines for bladder spasm like oxybutynin, tolterodine medicines for blood pressure medicines for depression, anxiety, or psychotic disturbances medicines for movement abnormalities or Parkinson's disease medicines for sleep other medicines for cold, cough or allergy some medicines for the stomach like chlordiazepoxide, dicyclomine What if I miss a dose? If you miss a dose, take it as soon as you can. If it is almost time for your next dose, take only that dose. Do not take double or extra doses. Where should I keep my medicine? Keep out of the reach of children. Store at room temperature between 15 and 30 degrees C (59 and 86 degrees F). Keep container closed tightly. Throw away any unused medicine after the expiration date. What should I tell my health care provider before I take this medicine? They need to know if you have any of these conditions: glaucoma high blood pressure heart disease liver disease lung or breathing disease, like asthma pain or difficulty passing urine phenylketonuria prostate trouble ulcers or other stomach problems an unusual or allergic reaction to diphenhydramine, sulfites, other medicines foods, dyes, or preservatives or trying to get breast-feeding What should I watch for while using this medicine? Visit your doctor or health wound care technician for regular check ups. Tell your doctor or healthcare professional if your symptoms do not start to get better or if they get worse. Your mouth may get dry. Chewing sugarless gum or sucking hard candy, and drinking plenty of water may help. Contact your doctor if the problem does not go away or is severe. This medicine may cause dry eyes and blurred vision. If you wear contact lenses you may feel some discomfort. Lubricating drops may help. See your eye doctor if the problem does not go away or is severe. You may get drowsy or dizzy. Do not drive, use machinery, or do anything that needs mental alertness until you know how this medicine affects you. Do not stand or sit up quickly, especially if you are an older patient. This reduces the risk of dizzy or fainting spells. Alcohol may interfere with the effect of this medicine. Avoid alcoholic drinks. You have been given the following additional information: Allergic Reaction, Insect (General) Ranitidine Hydrochloride Oral tablet Prednisone Oral tablet Diphenhydramine Tannate Chewable tablet Do not work today. (Electronically signed by Yasmani Chandra DO 11/19/2016 14:27)
--- NOTE | 2016-11-19 14:27 | ED MED RECONCILIATION SUMMARY ---
Patient: DANA RAUSCH Medication Reconciliation Report [facility] VisitID: [id number] [address] [place] [address] 46y, M Registration Date/Time: 11/19/2016 Weight: 108.8 kg Height/Length: 70 in. BMI: 34.4 ALLERGIES: Bee stings, Ibuprofen, PCN, Tape, Vicodin, Wool The patient's Home Medications are listed below: CONTINUE TAKING THE FOLLOWING MEDICATIONS: Doxepin HCl Oral Fluoxetine HCl Oral Gabapentin Oral Lantus Subcutaneous MetFORMIN HCl Oral Methocarbamol Oral Percocet Oral Seroquel Oral Statins Support Oral The source(s) of the original Home Medication information: Not obtained. The following Medications were given to the patient in the Emergency Department: Solu-Medrol [IM] IM 125 mg, administered: 11/19/2016 1:33:00 PM Benadryl [IM] IM 50 mg, administered: 11/19/2016 1:34:00 PM Famotidine [PO] PO 40 mg, administered: 11/19/2016 1:34:00 PM The following Medications were prescribed to the patient: Benadryl Allergy 25 mg (available over the counter): take 1-2 orally every 8 hours as needed for itching or allergies. Dispense thirty (30). No refill. Substitution is permissible. -- Yasmani Chandra DO Zantac 150 mg: take 1 orally every 12 hours for 3 days. Dispense fifteen (15). No refills. Substitution is permissible. -- Yasmani Chandra DO Prednisone 20 mg: take 3 orally every day for 3 days. Dispense sufficient quantity. No refills. -- Yasmani Chandra DO EpiPen Auto-Injector 0.3mg / unit: inject 1 unit dose as directed. Dispense one (1) one-esdras. No refills. Substitution is permissible. -- Yasmani Chandra DO
--- NOTE | 2016-11-19 14:27 | ED MAR SUMMARY ---
..... Medication Administration Record [facility] [address] [place] [address] Patient: DANA RAUSCH Visit ID: [id number] 46y, M Weight: 108.8 kg Height/Length: 70 in BMI: 34.4 ALLERGIES: Tape, Bee stings, Ibuprofen, PCN, Vicodin, Wool Given 13:33 11/19/2016 Imer Galindo R.N. Medication Administered: SOLU-MEDROL [IM] (METHYLPREDNISOLONE SODIUM SUCC), Dose: 125 mg IM. Medication Ordered: Solu-MEDROL IM 125 mg (NOW). Given 13:11/19/2016 Imer Galindo R.N. Medication Administered: BENADRYL [IM] (DIPHENHYDRAMINE HCL), Dose: 50 mg IM. Medication Ordered: Benadryl IM 50 mg (NOW). Given 13:11/19/2016 Imer Galindo R.N. Medication Administered: FAMOTIDINE [PO], Dose: 40 mg PO. Medication Ordered: Famotidine PO 40 mg (NOW).
--- NOTE | 2016-11-19 14:27 | ED MAR SUMMARY ---
..... Medication Administration Record [facility] [address] [place] [address] Patient: DANA RAUSCH Visit ID: [id number] 46y, M Weight: 108.8 kg Height/Length: 70 in BMI: 34.4 ALLERGIES: Tape, Bee stings, Ibuprofen, PCN, Vicodin, Wool Given 13:33 11/19/2016 Imer Galindo R.N. Medication Administered: SOLU-MEDROL [IM] (METHYLPREDNISOLONE SODIUM SUCC), Dose: 125 mg IM. Medication Ordered: Solu-MEDROL IM 125 mg (NOW). Given 13:11/19/2016 Imer Galindo R.N. Medication Administered: BENADRYL [IM] (DIPHENHYDRAMINE HCL), Dose: 50 mg IM. Medication Ordered: Benadryl IM 50 mg (NOW). Given 13:11/19/2016 Imer Galindo R.N. Medication Administered: FAMOTIDINE [PO], Dose: 40 mg PO. Medication Ordered: Famotidine PO 40 mg (NOW).
--- NOTE | 2016-11-19 14:27 | ED MED RECONCILIATION SUMMARY ---
Patient: DANA RAUSCH Medication Reconciliation Report [facility] VisitID: [id number] [address] [place] [address] 46y, M Registration Date/Time: 11/19/2016 Weight: 108.8 kg Height/Length: 70 in. BMI: 34.4 ALLERGIES: Bee stings, Ibuprofen, PCN, Tape, Vicodin, Wool The patient's Home Medications are listed below: CONTINUE TAKING THE FOLLOWING MEDICATIONS: Doxepin HCl Oral Fluoxetine HCl Oral Gabapentin Oral Lantus Subcutaneous MetFORMIN HCl Oral Methocarbamol Oral Percocet Oral Seroquel Oral Statins Support Oral The source(s) of the original Home Medication information: Not obtained. The following Medications were given to the patient in the Emergency Department: Solu-Medrol [IM] IM 125 mg, administered: 11/19/2016 1:33:00 PM Benadryl [IM] IM 50 mg, administered: 11/19/2016 1:34:00 PM Famotidine [PO] PO 40 mg, administered: 11/19/2016 1:34:00 PM The following Medications were prescribed to the patient: Benadryl Allergy 25 mg (available over the counter): take 1-2 orally every 8 hours as needed for itching or allergies. Dispense thirty (30). No refill. Substitution is permissible. -- Yasmani Chandra DO Zantac 150 mg: take 1 orally every 12 hours for 3 days. Dispense fifteen (15). No refills. Substitution is permissible. -- Yasmani Chandra DO Prednisone 20 mg: take 3 orally every day for 3 days. Dispense sufficient quantity. No refills. -- Yasmani Chandra DO EpiPen Auto-Injector 0.3mg / unit: inject 1 unit dose as directed. Dispense one (1) one-esdras. No refills. Substitution is permissible. -- Yasmani Chandra DO
== END 2016-11-19 14:14 | disposition home or self-care (01) ==
LOC: ED SRH 13:15
DX: T63.441A Toxic effect of venom of bees, accidental (unintentional), initial encounter (principal); Y93.9 Activity, unspecified; Y92.9 Unspecified place or not applicable; Y99.9 Unspecified external cause status; Z91.030 Bee allergy status; E11.9 Type 2 diabetes mellitus without complications; Z79.4 Long term (current) use of insulin; Z88.5 Allergy status to narcotic agent; Z88.0 Allergy status to penicillin